=== PATIENT | female | born 2005 | race African-American/Black ===

== ENCOUNTER 2024-08-17 17:03 | Observation (INO) | payer MEDICAID, SELFPAY ==
[2024-08-17 17:36] VITALS: BP 114/61; PULSE 85
[2024-08-17 19:15] LABS: Bilirubin Urine NEGATIVE (NEGATIVE); Blood Urine NEGATIVE (NEGATIVE); Color Urine LT. YELLOW (YELLOW); Glucose Urine UA NEGATIVE (NEGATIVE); Ketones Urine NEGATIVE (NEGATIVE); Leukocyte Esterase Urine LARGE (NEGATIVE); Nitrite Urine NEGATIVE (NEGATIVE); Protein Urine NEGATIVE (NEG/TRACE); Urobilinogen Urine 0.2 EU/dL (0.2-1.0)
[2024-08-17 19:23] LABS: Clarity Urine SLIGHTLY CLOUDY (CLEAR); Urine Microscopic Indicated YES
[2024-08-17 19:26] LABS: Bacteria Urine TRACE #/HPF (NONE SEEN); Cast Seen? NONE SEEN #/LPF (NONE SEEN); Crystals Seen? None Seen #/HPF (None Seen); Mucus Urine NONE SEEN (NONE SEEN); RBC Urine NONE SEEN #/HPF (0-2); Squamous Epithelial Cell Urine MODERATE #/LPF (NONE/RARE); Urine Culture Indicated YES
--- NOTE | 2024-08-22 08:54 | CM.NOTE ---
Faxed Preliminary urine culture to Krystyna Calvo [phone]
== END 2024-08-17 20:15 | disposition home or self-care (01) ==
PROVIDERS: Admitting Provider Midwife; PCP Family Medicine; Visit Provider Midwife
DX: O99.891 Other specified diseases and conditions complicating pregnancy (principal); R10.9 Unspecified abdominal pain; Z3A.24 24 weeks gestation of pregnancy; O23.42 Unspecified infection of urinary tract in pregnancy, second trimester; N39.0 Urinary tract infection, site not specified; B95.1 Streptococcus, group B, as the cause of diseases classified elsewhere
CPT/HCPCS: 59025; 81001; 87086; 87150; 87186; G0378; G0379

== ENCOUNTER 2024-11-28 08:30 | Inpatient (IN) | payer MEDICAID, SELFPAY ==
[2024-11-28] VITALS (47 sets, daily range): BP systolic 79–161; BP diastolic 44–98; PULSE 51–93; TEMP 36.1–36.6
[2024-11-28 09:28] LABS: Bilirubin Urine NEGATIVE (NEGATIVE); Blood Urine NEGATIVE (NEGATIVE); Clarity Urine CLEAR (CLEAR); Color Urine LT. YELLOW (YELLOW); Glucose Urine UA NEGATIVE (NEGATIVE); Ketones Urine NEGATIVE (NEGATIVE); Leukocyte Esterase Urine LARGE (NEGATIVE); Nitrite Urine NEGATIVE (NEGATIVE); Protein Urine NEGATIVE (NEG/TRACE); Urobilinogen Urine 0.2 EU/dL (0.2-1.0)
[2024-11-28 09:31] LABS: Urine Microscopic Indicated YES
[2024-11-28 09:43] LABS: Bacteria Urine TRACE #/HPF (NONE SEEN); RBC Urine 0-2 #/HPF (0-2)
[2024-11-28 09:44] LABS: Cast Seen? NONE SEEN #/LPF (NONE SEEN); Crystals Seen? None Seen #/HPF (None Seen); Mucus Urine NONE SEEN (NONE SEEN); Squamous Epithelial Cell Urine MODERATE #/LPF (NONE/RARE); Urine Culture Indicated YES-LC
[2024-11-28 11:25] LABS: Hematocrit 38.4 % (36.0-48.0); Hemoglobin 12.3 g/dL (12.0-16.0); Mean Corpuscular Hemoglobin 26.7 pg (26.7-34.0); Mean Corpuscular Volume 83.5 fL (81.0-99.0); Mean Platelet Volume 12.2 fL (9.5-13.5); Platelet Count 199 10^3/uL (150-450); Red Cell Distribution Width 13.2 % (11.0-15.0); White Blood Count 12.4 10^3/uL (4.0-11.0)
[2024-11-28 11:25] LABS: Amphetamine Screen Urine NEGATIVE (NEGATIVE); Barbiturates Screen Urine NEGATIVE (NEGATIVE); Benzodiazepines Screen Urine NEGATIVE (NEGATIVE); Buprenorphine Screen Urine NEGATIVE (NEGATIVE); Cannabinoid Screen Urine NEGATIVE (NEGATIVE); Cocaine Screen Urine NEGATIVE (NEGATIVE); Methadone Screen Urine NEGATIVE (NEGATIVE); Methamphetamines Screen Urine NEGATIVE (NEGATIVE); Opiate Screen Urine NEGATIVE (NEGATIVE); Oxycodone Screen Urine NEGATIVE (NEGATIVE); Phencyclidine Screen Urine NEGATIVE (NEGATIVE); Tricyclic Antidepressant Urine NEGATIVE (NEGATIVE)
[2024-11-28] MEDS: PENICILLIN G POTASSIUM 5,000,000 UNIT in 0.9 % SODIUM CHLORIDE 100 ML 200 UNIT IV (11:37)
[2024-11-28] MEDS: LACTATED RINGER'S SOLUTION 1,000 ML 125 ML IV ×3 (12:16→22:41)
--- NOTE | 2024-11-28 13:05 | PM.OBHP ---
OB - H&P: HPI History of Present Illness Chief complaint: POSS LABOR : 3 Para: 0 Gestational age based on last menstrual period: 39.2 History of Present Dating criteria: LMP confirmed by 1st trimester US care: good care Ultrasounds: normal 1st trimester US and normal mid trimester US Medical complications OB: none Labs Blood type: O (+) positive Rubella: immune RPR/VDLR: nonreactive GBS status: positive HBsAG: negative Review of Systems ROS Status of ROS: 10 or more systems reviewed and unremarkable except as noted in history and below PFSH PFS Social History (Updated 11/28/24 @ 09:26 by Simona Valdez) Non-prescribed substance use: denies use Meds Home Medications and Allergies Home Medications ?Medication ?Instructions ?Recorded ?Confirmed ?Type docusate sodium 100 mg capsule 100 mg PO DAILY 08/17/24 11/28/24 History ferrous sulfate 325 mg (65 mg 325 mg PO DAILY 08/17/24 08/17/24 History iron) tablet,delayed release vit no.95-ferrous 1 tab PO DAILY 08/17/24 11/28/24 History fumarate 28 mg-folic acid 800 mcg tablet () metronidazole 500 mg tablet 500 mg PO 11/28/24 History Allergies Allergy/AdvReac Type Severity Reaction Status Date / Time No Known Drug Allergies Allergy Verified 11/28/24 09:24 Exam Constitutional Vital Signs, click to edit/add: Last Vital Signs Temp 97.9 F 11/28/24 11:19 Pulse 93 H 11/28/24 12:15 Resp 16 11/28/24 11:19 BP 139/91 11/28/24 12:15 Documenting provider has reviewed patient's vital signs: yes Common normals: no apparent distress General appearance: cooperative Orientation/consciousness: Yes awake, Yes oriented to person, Yes oriented to place and Yes oriented to time HENPA Common normals: normocephalic Eye Common normals: EOMs intact bilaterally General eye: normal appearance of both eyes Neck & C-Spine Common normals: full ROM General: normal visual inspection Lymph Lymphatic: no lymphadenopathy noted Chest Common normals: inspection of chest normal Respiratory Common normals: normal respiratory effort, no retractions, no use of accessory muscles, clear to auscultation bilaterally and percussion normal Effort & inspection: able to speak in complete sentences Auscultation: clear to auscultation bilaterally Cardio Common normals: regular rate and regular rhythm Rate: regular rate Rhythm: regular rhythm GI Common normals: Normal to inspection, nondistended, normoactive bowel sounds present Inspection: normal to inspection Palpation: soft Common normals: no CVA tenderness Back & Pelvis Common normals: no CVA tenderness Thoracic spine/upper back: normal to inspection Extremity Common normals: normal to inspection General: normal exam except as noted Neuro Common normals: oriented x3 Sensorium/orientation: awake, alert, oriented to person, oriented to place and oriented to time Psych Common normals: mental status grossly normal, thought process normal, cooperative, affect normal, speech normal, activity/motor behavior normal, denies hallucinations, denies homicidal ideation and denies suicidal ideation Attitude: calm Speech: normal speech Results Labs Labs: Short CBC 11/28/24 Range/Units 10:57 WBC 12.4 H (4.0-11.0) 10^3/uL Hgb 12.3 (12.0-16.0) g/dL Hct 38.4 (36.0-48.0) % Plt Count 199 (150-450) 10^3/uL Urine 11/28/24 Range/Units 08:50 Urine Color Lt. yellow (YELLOW) Urine Clarity Clear (CLEAR) Urine pH 7.0 (5.0-9.0) Ur Specific [place] 1.010 (1.005-1.025) Urine Protein Negative (NEG/TRACE) mg/dL Urine Glucose (UA) Negative (NEGATIVE) mg/dL OB - A/P Assessment and Plan (1) Term : (2) GBS (group B Streptococcus carrier), +RV culture, currently :
[2024-11-28] MEDS: NALBUPHINE HCL 10 MG/ML AMPULE 20 MG IM (13:39)
[2024-11-28] MEDS: OXYTOCIN/0.9 % SODIUM CHLORIDE 10 UNITS/500 ML PLAST..BAG 6 UNIT IV (13:45)
--- NOTE | 2024-11-28 14:11 | PM.EN ---
Event Note Event Note: 1:26 pm to room, assessment obtained, SVE 2-/-1 Sterile amnihook used and performed AROM with return of small amount of clear, odorless, blood tinged fluid. heart tones stable before, during and after ROM. SVE /-1 patient tolerated procedure well.
[2024-11-28] MEDS: PENICILLIN G POTASSIUM 2,500,000 UNIT in 0.9 % SODIUM CHLORIDE 50 ML 100 UNIT IV ×2 (16:06→19:59)
--- NOTE | 2024-11-28 16:42 | PC.NURSE ---
Iv bolus starts at this time d/t pt ATB running at 1617.
[2024-11-28] MEDS: ROPIVACAINE HCL/PF 400 MG/200 ML PREMIX 6 MG EPIDURAL (17:08)
[2024-11-28] MEDS: LACTATED RINGER'S SOLUTION 1,000 ML 999 ML IV (17:34)
[2024-11-28] MEDS: ONDANSETRON PF 4 MG/2 ML VIAL IV (18:11)
--- NOTE | 2024-11-28 18:43 | PM.EN ---
Event Note Event Note: provider on unit and patient assessed. SVE /0 Dr Calvo called per this provider and he states he can see the EFM tracing. He assessed the strip and states patient is having variables and would like to order an amnioinfusion.
--- NOTE | 2024-11-28 19:00 | PM.EN ---
Event Note Event Note: Dr Calvo phones in and after reviewing EFM tracing he does not want IUPC placed. Continue to observe patient and tracing and call him if needed.
--- NOTE | 2024-11-28 19:33 | PC.NURSE ---
0840- Pt arrives to [facility] at this time via wheelchair with support people. Pt breathing through cxt's. Pt states she has been cxting on/off since wednesday but states cxt's increased to q5min this AM. Pt denies leaking of fluid or vaginal bleeding. Pt reports movement. Pt denies complications with this time . Pt given urine specimen for sample and gown.
--- NOTE | 2024-11-28 21:08 | W.PC.ACHO ---
Registration Status: ADM KENISHA Primary Language: Hong Konger Preferred Language: [place] Konger Report given to Mylene STACY at 1900. Care relinquished. Active Medications Generic Name Dose Route Start Last Admin Trade Name Fredo PRN Reason Stop Dose Admin Carboprost Tromethamine 250 mcg 11/28/24 10:38 Carboprost Tromethamine 250 Mcg/Ml 1 Ml Vial IM 11/30/24 10:38 Q15M PRN Bleeding Diphenhydramine HCl 25 mg 11/28/24 10:41 Diphenhydramine Hcl 50 Mg/Ml Vial IV 11/29/24 10:42 Q6H PRN Itching Ephedrine Sulfate 5 mg 11/28/24 10:41 Ephedrine Sulfate 50 Mg/Ml Vial IV 11/29/24 10:42 Q5M PRN Blood Pressure - Low Fentanyl Citrate 100 mcg 11/28/24 10:41 Fentanyl Citrate/Pf 100 Mcg/2 Ml Vial EPIDURAL ONCE PRN epidural Fentanyl Citrate 100 mcg 11/28/24 10:41 Fentanyl Citrate/Pf 100 Mcg/2 Ml Vial EPIDURAL ONCE PRN epidural Tranexamic Acid 1,000 mg/ 110 mls @ 440 mls/hr 11/28/24 10:38 Sodium Chloride IV 11/30/24 10:38 ONCE PRN Uterine Bleeding Lactated Ringer's 1,000 mls @ 125 mls/hr 11/28/24 11:00 11/28/24 18:05 Lactated Ringers IV 125 mls/hr .Q8H MARIANNA Infusion Oxytocin/Sodium Chloride 10 units in 500 mls @ 6 mls/hr 11/28/24 10:45 11/28/24 20:38 Pitocin 10 Unit/500 Ml-Ns IV 2 milliunit/min TITR MARIANNA 6 mls/hr Protocol Infusion 2 MILLIUNIT/MIN Penicillin G Potassium 2,500, 50 mls @ 100 mls/hr 11/28/24 15:30 11/28/24 20:30 000 unit/ Sodium Chloride IV Infused Q4H MARIANNA Infusion Oxytocin/Sodium Chloride 20 units in 1,000 mls @ 125 mls/hr 11/28/24 10:38 Pitocin 20 Unit/1,000 Ml-Ns IV Q8H PRN POST DELIVERY Ropivacaine/Sodium Chloride 400 mg in 200 mls @ 6 mls/hr 11/28/24 10:45 11/28/24 17:08 Naropin 0.2% 400 Mg/200 Ml Bag EPIDURAL 6 mls/hr Q24H MARIANNA Administration Lidocaine 5 ml 11/28/24 10:38 Lidocaine Viscous 2% 15 Ml Solution TOPICAL 11/30/24 10:40 ONCE PRN Pain Lidocaine 1 ml 11/28/24 10:38 Lidocaine Hcl 1% 200 Mg/20 Ml Mdv INJ 11/30/24 10:40 ONCE PRN Pain Lidocaine 5 ml 11/28/24 10:41 Lidocaine Hcl 2% Pf 100 Mg/5 Ml Vial INJ 11/29/24 10:41 Q1H PRN Epidural Methylergonovine Maleate 0.2 mg 11/28/24 10:38 Methylergonovine Maleate 0.2 Mg/Ml Ampule IM 11/30/24 10:38 ONCE PRN Uterine Contractility/Contract Methylergonovine Maleate 0.2 mg 11/28/24 10:38 Methylergonovine Maleate 0.2 Mg Tablet PO 11/30/24 10:38 Q4H PRN Uterine Contractility/Contract Misoprostol 600 mcg 11/28/24 10:38 Misoprostol 100 Mcg Tablet PO 11/30/24 10:38 ONCE PRN Uterine Bleeding Misoprostol 800 mcg 11/28/24 10:38 Misoprostol 100 Mcg Tablet SL 11/30/24 10:38 ONCE PRN Uterine Bleeding Misoprostol 1,000 mcg 11/28/24 10:38 Misoprostol 100 Mcg Tablet HI 11/30/24 10:38 ONCE PRN Uterine Bleeding Nalbuphine HCl 20 mg 11/28/24 10:38 11/28/24 13:39 Nalbuphine Hcl 10 Mg/Ml Ampule IM 20 mg Q4H PRN Administration Pain Scale 7-10 Naloxone HCl 0.4 mg 11/28/24 10:41 Naloxone Hcl 0.4 Mg/Ml Vial IV 11/29/24 10:42 ONCE PRN Respiratory Distress Ondansetron HCl 4 mg 11/28/24 10:38 11/28/24 18:11 Ondansetron Pf 4 Mg/2 Ml Vial IV 4 mg Q6H PRN Administration Nausea And Vomiting Ondansetron HCl 4 mg 11/28/24 10:38 Ondansetron 4 Mg Rapdis Tablet SL Q6H PRN Nausea And Vomiting Oxytocin 10 unit 11/28/24 10:38 Oxytocin 10 Unit/Ml Vial IM 11/30/24 10:38 ONCE PRN Bleeding Diet Category Date Time Status Regular Consistency Diet Diet 11/28/24 10:38 Active Consults Category Date Time Status Consult to Anesthesiology Routine Cons 11/28/24 Ordered Consult to Contour Stitcher Routine Cons 11/28/24 Ordered IV Insertion/Site Date of IV Line Insertion [ 11/28/24 Short PIV (<1.75 in) 18g right Wrist] IV Insertion Time [Short PIV ( 10:57 <1.75 in) 18g right Wrist] Neurology Patient orientation (short person,place,time,situation list) Catheter Urinary Catheter Date of 11/28/24 Insertion [Urethral] Urinary Catheter Time of 17:15 Insertion [Urethral]
[2024-11-28] MEDS: OXYTOCIN/0.9 % SODIUM CHLORIDE 20 UNITS/1,000 ML PLAST..BAG 125 UNIT IV (23:58)
[2024-11-28] MEDS: LIDOCAINE HCL 1% 200 MG/20 ML MDV INJ (23:58)
[2024-11-29] VITALS (13 sets, daily range): BP systolic 100–124; BP diastolic 56–79; PULSE 65–75; TEMP 36.4–36.7
--- NOTE | 2024-11-29 00:34 | PM.OBPRCVD ---
Procedure Intrapartal events: None Induction method: artificial rupture of membranes Delivery augmentation: pitocin Delivery monitor: external FHT and external uterine Route of delivery: Episiotomy Description: none L&D Laceration Description: periurethral - 1st degree and perineal - 2nd degree Delivery repair: Vicryl Estimated blood loss (mL): 200 Anesthesia type: Epidural Disposition: same day Delivery date: 11/28/24 Gender: female presentation: vertex Placental delivery description: Spontaneous cord description: 3 Vessels heart rate - 1 minute: 100 bpm or Greater respiratory effort - 1 minute: Spontaneous/Strong Cry muscle tone - 1 minute: Active Movement reflex response - 1 minute: Minimal Response color - 1 minute: Bluish Hands or Feet total score - 1 minute: 8 heart rate - 5 minute: 100 bpm or Greater respiratory effort - 5 minute: Spontaneous/Strong Cry muscle tone - 5 minute: Active Movement reflex response - 5 minute: Prompt Response color - 5 minute: Bluish Hands or Feet total score - 5 minute: 9
[2024-11-29] MEDS: BENZOCAINE/MENTHOL 85 GRAM SPRAY BOTTLE 1 APPLIC TOPICAL (00:53)
[2024-11-29] MEDS: IBUPROFEN 400 MG TABLET 800 MG PO ×3 (00:54→18:20)
[2024-11-29] MEDS: ACETAMINOPHEN 325 MG TABLET 650 MG PO ×3 (00:54→18:20)
[2024-11-29] MEDS: GLYCERIN/WITCH HAZEL PADS 1 PAD TOPICAL (00:55)
[2024-11-29] MEDS: LIDOCAINE VISCOUS 2% 15 ML SOLUTION 5 ML TOPICAL (00:56)
--- NOTE | 2024-11-29 09:51 | PM.OBPN ---
OB - PN: Subj Subjective Patient comments: no complaints, pain well controlled, tolerating diet and flatus present Exam Constitutional Vital Signs, click to edit/add: Last Vital Signs Temp 98.0 F 11/29/24 01:45 Pulse 75 11/29/24 09:12 Resp 18 11/28/24 18:36 BP 118/78 11/29/24 09:12 O2 Del Method Room Air 11/29/24 01:45 Common normals: no apparent distress, average body habitus, oriented x3, no limitations, healthy appearing, alert and well nourished General appearance: cooperative, comfortable, well kempt and well developed Orientation/consciousness: Yes awake, Yes oriented to person, Yes oriented to place and Yes oriented to time Back & Pelvis Pelvis: other (Mild lochia rubra is present) Extremity Common normals: normal to inspection, no clubbing, cyanosis or edema and no pedal edema Results Labs Labs: Short CBC 11/28/24 Range/Units 10:57 WBC 12.4 H (4.0-11.0) 10^3/uL Hgb 12.3 (12.0-16.0) g/dL Hct 38.4 (36.0-48.0) % Plt Count 199 (150-450) 10^3/uL Urinary Catheter Management Urinary Catheter Management Urethral: Cath placed during this visit: yes, but has since been removed by the nurse Insertion date: 11/28/24 Insertion time: 17:15 Removal date: 11/28/24 Removal time: 23:32 Straight: Cath placed during this visit: yes, but has since been removed by the nurse Insertion date: 11/29/24 Insertion time: 00:22 Removal date: 11/29/24 Removal time: 00:24 OB - PN: A/P Assessment and Plan (1) Term : (2) GBS (group B Streptococcus carrier), +RV culture, currently : Plan - Vaginal Delivery day: 1 Plan: routine care Time Spent with Patient Time: Total time spent is greater than 50% in coordination of care (as documented) at patient's floor/unit and/or counseling patient: Total time spent with greater than 50% in coordination of care (as documented) at patient's floor/unit and/or counseling patient: less than 15 minutes
--- NOTE | 2024-11-29 19:27 | W.PC.ACHO ---
Registration Status: ADM IN Primary Language: Swiss Preferred Language: Swiss Report given to Justen STACY. Care relinquished at 1915. Active Medications Generic Name Dose Route Start Last Admin Trade Name Fredo PRN Reason Stop Dose Admin Acetaminophen 650 mg 11/29/24 00:38 11/29/24 18:20 Acetaminophen 325 Mg Tablet PO 650 mg Q6H PRN Administration Mild Pain Al Hydroxide/Mg Hydroxide 2,400 mg 11/29/24 00:38 Magnesium Hydroxide 2,400 Mg/10 Ml Oral.Susp PO Q6H PRN Dyspepsia Benzocaine/Menthol 1 applic 11/29/24 00:38 11/29/24 00:53 Benzocaine/Menthol 85 Gram [place] Bottle TOPICAL 1 applic Q2H PRN Administration Pain Carboprost Tromethamine 250 mcg 11/28/24 10:38 Carboprost Tromethamine 250 Mcg/Ml 1 Ml Vial IM 11/30/24 10:38 Q15M PRN Bleeding Diphtheria/Pertussis/Tetanus Vacc 0.5 ml 12/01/24 09:00 Adacel Diph,Pertuss(Acell),Tet Vac/Pf 0.5 Ml Adult Syringe IM 12/01/24 09:01 .ONCE ONE Docusate Sodium 100 mg 11/30/24 09:00 Docusate Sodium 100 Mg Capsule PO BID MARIANNA Tranexamic Acid 1,000 mg/ 110 mls @ 440 mls/hr 11/28/24 10:38 Sodium Chloride IV 11/30/24 10:38 ONCE PRN Uterine Bleeding Lactated Ringer's 1,000 mls @ 125 mls/hr 11/28/24 11:00 11/28/24 22:41 Lactated Ringers IV 125 mls/hr .Q8H MARIANNA Administration Ibuprofen 800 mg 11/29/24 00:45 11/29/24 18:20 Ibuprofen 400 Mg Tablet PO 800 mg Q8H MARIANNA Administration Methylergonovine Maleate 0.2 mg 11/28/24 10:38 Methylergonovine Maleate 0.2 Mg/Ml Ampule IM 11/30/24 10:38 ONCE PRN Uterine Contractility/Contract Methylergonovine Maleate 0.2 mg 11/28/24 10:38 Methylergonovine Maleate 0.2 Mg Tablet PO 11/30/24 10:38 Q4H PRN Uterine Contractility/Contract Misoprostol 600 mcg 11/28/24 10:38 Misoprostol 100 Mcg Tablet PO 11/30/24 10:38 ONCE PRN Uterine Bleeding Misoprostol 800 mcg 11/28/24 10:38 Misoprostol 100 Mcg Tablet SL 11/30/24 10:38 ONCE PRN Uterine Bleeding Misoprostol 1,000 mcg 11/28/24 10:38 Misoprostol 100 Mcg Tablet MO 11/30/24 10:38 ONCE PRN Uterine Bleeding Ondansetron HCl 4 mg 11/28/24 10:38 11/28/24 18:11 Ondansetron Pf 4 Mg/2 Ml Vial IV 4 mg Q6H PRN Administration Nausea And Vomiting Ondansetron HCl 4 mg 11/28/24 10:38 Ondansetron 4 Mg Rapdis Tablet SL Q6H PRN Nausea And Vomiting Oxytocin 10 unit 11/28/24 10:38 Oxytocin 10 Unit/Ml Vial IM 11/30/24 10:38 ONCE PRN Bleeding Senna 17.2 mg 11/29/24 20:00 Sennosides 8.6 Mg Tablet PO QHS PRN Constipation Simethicone 80 mg 11/29/24 00:38 Simethicone 80 Mg Tab.Chew PO QID PRN Abdominal Distention Temazepam 15 mg 11/29/24 00:38 Temazepam 15 Mg Capsule PO QHS PRN Sleep Witch Lauren/Glycerin 1 pad 11/29/24 00:38 11/29/24 00:55 Glycerin/Witch Lauren Pads TOPICAL 1 pad Q2H PRN Administration Pain Diet Category Date Time Status Regular Consistency Diet Diet 11/29/24 00:38 Active Respiratory Oxygen Delivery Method Room Air Oxygen Delivery Method Room Air Oxygen Delivery Method Room Air Cardiology Heart Sounds Strong,Regular Heart Sounds Strong,Regular Bowels Bowel Pattern No Bowel Movement Bowel Pattern No Bowel Movement Renal Bladder Pattern Continent Catheter Urinary Catheter Date of 11/29/24 Insertion [Straight] Urinary Catheter Date of 11/29/24 Insertion [Straight] Urinary Catheter Date of 11/28/24 Insertion [Urethral] Urinary Catheter Time of 00:22 Insertion [Straight] Urinary Catheter Time of 00:22 Insertion [Straight] Urinary Catheter Time of 17:15 Insertion [Urethral] Date Urinary Catheter Removed 11/29/24 [Straight] Date Urinary Catheter Removed 11/29/24 [Straight] Date Urinary Catheter Removed 05/13/25 [Urethral] Date Urinary Catheter Removed 11/28/24 [Urethral] Time Urinary Catheter 00:24 Discontinued [Straight] Time Urinary Catheter 00:24 Discontinued [Straight] Time Urinary Catheter 23:32 Discontinued [Urethral] Time Urinary Catheter 23:32 Discontinued [Urethral]
[2024-11-30 01:11] VITALS: BP 118/58; PULSE 87
[2024-11-30] MEDS: ACETAMINOPHEN 325 MG TABLET 650 MG PO ×3 (01:15→16:34)
[2024-11-30 02:25] VITALS: TEMP 37.1
[2024-11-30] MEDS: IBUPROFEN 400 MG TABLET 800 MG PO ×2 (03:08→12:24)
[2024-11-30 08:25] VITALS: BP 114/62; PULSE 85; TEMP 36.8
[2024-11-30] MEDS: DOCUSATE SODIUM 100 MG CAPSULE PO (08:35)
--- NOTE | 2024-11-30 10:35 | SWNOTE1 ---
SW was consulted to meet with pt for early THC use in and mental health. SW did speak with nurse yesterday. Pt and father not together at this time. Pt does not see counselor at this time, had been feeling down during . SW met with pt. This is her first baby. Pt moved back here from [place] about a year ago to be closer to her mom. Pt does live with her mother. That is her main support. Father of baby and pt are not together at this time, but they are on good terms and he is still a part of baby life. He is trying to figure out his plans and if he is moving to [place], but that will not be for awhile. Pt does have everything she needs at home for baby. Pt is breast feeding and voiced it is going well. SW did ask pt about the early THC use in . She stated once she decided she was keeping baby she stopped. 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 Pt voiced she does not know what depression feels like. She voiced she is very self aware and will reach out to her support if she needs to. SW and pt spoke about counseling. She has not been before, but if she gets to a place where she feels she needs it, she will reach out. Pt voiced at this time she is feeling good. At this time no concerns. Pt is caring for baby appropriately. DODIE updated nurse.
--- NOTE | 2024-11-30 10:41 | P.DS_ITS ---
DS: Providers Provider Date of admission: 11/28/24 10:38 Primary care physician: LOUISA GILLESPIE Admitting clinician: Adin Hdez Attending physician on admission: Adin Hdez Consults: 11/28/24 Consult to Anesthesiology Routine Consulting Provider: Solis Arce Reason for consultation: Epidural Consult to Line Inspector Routine Has provider been notified: No Reason for consult:: Mental Health Other Other reason:: THC + early Attending physician on discharge: Siddharth Calvo Discharging clinician: Siddharth Calvo Anticipated date of discharge: 11/30/24 DS: Diagnosis Discharge Diagnosis (1) Term : Assessment and plan: Patient is post primary #2. Patient for discharge home today. (2) GBS (group B Streptococcus carrier), +RV culture, currently : Assessment and plan: Patient is #2. Patient was discharged home today. Plan Patient is post primary #2. Pace for discharge to home today. OB - DS: Summary Hospital Course Hospital Course: Uneventful. Time spent discussing smoking cessation with patient: 3 to 10 minutes Peripartum Data - Vaginal Delivery Laceration description: perineal - 2nd degree Complications complications: none Infant Delivery method: spontaneous vaginal delivery Gender: female Status at Discharge Cognitive/behavioral status at discharge: Normal Functional status at discharge: independent ambulation Overall status at discharge: patient is back to baseline Time Spent with Patient Time attestation: Total time spent providing and/or coordinating discharge services: Time spent: less than 30 minutes Specific discharge activities: Patient to resume normal activities as tolerated. Exam Narrative Exam Narrative: General appearance: Alert and oriented distress. Constitutional Vital Signs, click to edit/add: Last Vital Signs Temp 98.8 F 11/30/24 02:25 Pulse 85 11/30/24 08:25 Resp 15 11/30/24 02:25 BP 114/62 11/30/24 08:25 O2 Del Method Room Air 11/30/24 02:25 Documenting provider has reviewed patient's vital signs: yes Common normals: no apparent distress, average body habitus, oriented x3, no limitations, healthy appearing, alert and well nourished General appearance: cooperative, comfortable, well kempt, well developed and well hydrated Orientation/consciousness: Yes awake, Yes oriented to person, Yes oriented to place and Yes oriented to time GI Common normals: Normal to inspection, nondistended, normoactive bowel sounds present, soft to palpation and non-tender (This very contracted into fingerbreadth below to umbilicus.) Back & Pelvis Pelvis: other (Mild lochia rubra.) Extremity Common normals: normal to inspection, no calf tenderness and no pedal edema Discharge Plan Discharge Disposition: Home, Self-Care Condition: Good Assessment: Patient is postponing #2 doing well. Health Concerns: No health concerns. Plan of Treatment: Patient to return in 6 weeks for visit. Discharge Medications: New acetaminophen 325 mg Tablet 650 mg PO Q6H PRN (Reason: Mild Pain) 28 Days Qty: 120 0RF Dermoplast (with menthol) 20-0.5 % Aerosol 1 spray topical Q2H PRN (Reason: Pain) 28 Days Qty: 2 0RF ibuprofen 400 mg Tablet 800 mg PO Q8H 28 Days Qty: 168 0RF A.E.R. Witch Lauren 12.5-50 % Pads, Medicated 1 pad topical Q2H PRN (Reason: Pain) 28 Days Qty: 60 0RF simethicone [Gas Relief 80 (simethicone)] 80 mg Tablet,Chewable 80 mg PO QID PRN (Reason: Abdominal Distention) 28 Days Qty: 60 0RF Continued PNV cmb#95-ferrous fumarate-FA [] 28 mg iron- 800 mcg tablet 1 tab PO DAILY Discontinued ferrous sulfate 325 mg (65 mg iron) tablet,delayed release (DR/EC) 325 mg PO DAILY metronidazole 500 mg tablet 500 mg PO No Action docusate sodium 100 mg capsule 100 mg PO DAILY Print Language: Armenian Forms: Portal Instructions
[2024-11-30 16:24] VITALS: BP 126/70; PULSE 67
[2024-11-30 16:25] VITALS: TEMP 36.8
--- NOTE | 2024-12-01 17:59 | PC.NURSE ---
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 Reviewing the chart, prescriptions upon discharge state transmission error. Eder VALERIO notified and states she will call in prescriptions for patient. RN calls patient back at phone number requested, no answer, VM left.
== END 2024-11-30 21:40 | disposition home or self-care (01) | DRG 560 ==
PROVIDERS: Admitting Provider Midwife; PCP Family Medicine; Visit Provider Midwife
DX: O99.824 Streptococcus B carrier state complicating childbirth (principal); O70.1 Second degree perineal laceration during delivery; O71.82 Other specified trauma to perineum and vulva; O99.02 Anemia complicating childbirth; D50.9 Iron deficiency anemia, unspecified; Z3A.39 39 weeks gestation of pregnancy; Z37.0 Single live birth; Z23 Encounter for immunization
CPT/HCPCS: 36415; 59050; 59410; 80307; 81001; 85027; 86850; 86900; 86901; 87086; J2300; J2405; J2540; J2795